=== PATIENT | male | born 1955 | race Caucasian/White ===

== ENCOUNTER 2017-02-23 22:07 | Emergency (ER) | payer OTHER ==
[2017-02-23] MEDS ORDERED: ZOCOR20 M1 PO (23:10)
[2017-02-24] MEDS ORDERED: LEVAQUIN750 M1 PO (00:19)
== END 2017-02-24 00:35 ==
LOC: EDMED 22:07
DX: S91.331A Puncture wound without foreign body, right foot, initial encounter (principal); Z23 Encounter for immunization; W45.0XXA Nail entering through skin, initial encounter; Y92.009 Unspecified place in unspecified non-institutional (private) residence as the place of occurrence of the external cause